=== PATIENT | male | born 1980 | race Two or more races ===

== ENCOUNTER 2018-01-08 11:39 | Emergency (ER) | payer OTHER ==
[2018-01-08 12:02] VITALS: BP 136/85
--- NOTE | 2018-01-08 12:28 | ER Document Report ---
ED General - General Chief Complaint: Facial Droop Stated Complaint: FACIAL NUMBNESS Time Seen by Provider: 01/08/18 12:10 Notes: 37-year-old male sent here from the [place] for evaluation of Pearson's palsy. Patient states that 2-3 days ago, he woke up with complete left sided facial paralysis but no numbness or tingling. He has been unable to completely close his eyelid. Earlier in the week, he ate a shrimp sandwich and broke out with mouth sores however they went away and are resolved but several days later he woke up with the facial paralysis symptoms. He denies any eye pain or ear pain however has some pain behind his left ear. No prior history of Pearson's palsy. Denies extremity paralysis weakness numbness tingling. TRAVEL OUTSIDE OF THE [place] IN LAST 30 DAYS: No - Related Data Allergies/Adverse Reactions: No Known Allergies Allergy (Verified 01/08/18 11:45) Past Medical History - Social History Smoking Status: Unknown if Ever Smoked Family History: Reviewed & Not Pertinent Review of Systems - Review of Systems Notes: See history of present illness for pertinent positive review of systems; otherwise all review of systems have been reviewed and are negative Physical Exam - Vital signs Vitals: Temp Pulse Resp BP Pulse Ox 98.1 F 59 L 18 136/85 H 96 01/08/18 12:01 01/08/18 12:01 01/08/18 12:01 01/08/18 12:01 01/08/18 12:01 - Notes Notes: PHYSICAL EXAMINATION: GENERAL: Well-appearing and in no acute distress. HEAD: Atraumatic, normocephalic. EYES: Pupils equal round and reactive to light, extraocular movements intact, sclera anicteric, conjunctiva are normal. ENT: nares patent, oropharynx clear without exudates. Moist mucous membranes. No facial vesicular lesions. Bilateral TMs normal NECK: Normal range of motion, supple without lymphadenopathy LUNGS: CTAB and equal. No wheezes rales or rhonchi. HEART: Regular rate and rhythm without murmurs ABDOMEN: Soft, no tenderness. No facial grimacing/wincing upon palpation. No guarding, no rebound. EXTREMITIES: Normal range of motion, no pitting edema. No cyanosis. NEUROLOGICAL: Full facial paralysis, upper and lower with absence of forehead furrows however facial sensation is fully intact/normal. Normal sensory/motor exams all extremities. PSYCH: Normal mood, normal affect. SKIN: Warm, Dry, normal turgor, no rashes or lesions noted Course - Re-evaluation Re-evalutation: 01/08/18 12:32 MEDICAL DECISION MAKING: Concern for Pearson's palsy History and exam are consistent with Pearson's palsy, especially preceding oral lesions Low clinical suspicion for acute emergent pathology i.e. CVA/TIA/bleed Will prescribe valacyclovir prednisone and meloxicam Instructed follow-up PCP next day or few Patient understands and agrees to the plan of care - Vital Signs Vital signs: Temp Pulse Resp BP Pulse Ox 98.1 F 59 L 18 136/85 H 96 01/08/18 12:01 01/08/18 12:01 01/08/18 12:01 01/08/18 12:01 01/08/18 12:01 Discharge - Discharge Clinical Impression: Pearson's palsy Condition: Good Disposition: HOME, SELF-CARE Instructions: Pearson's Palsy ([facility]) Additional Instructions: You were seen in the emergency department at [facility]. Please finish the antivirals and steroids for the Pearson's palsy. Please followup with your primary physician in the next few days for further management/evaluation. Please return to the emergency department for worsening of symptoms or any symptom that you deem to be concerning or life-threatening. Thank you for allowing us to be part of your care. Prescriptions: Meloxicam 7.5 mg PO DAILYP PRN #7 tablet PRN Reason: Prednisone 60 mg PO DAILY #21 tablet Valacyclovir HCl [Valacyclovir] 1,000 mg PO TID #21 tablet
== END 2018-01-08 12:27 | disposition home or self-care (01) ==
LOC: ER 11:39
DX: G51.0 Bell's palsy (principal)
CPT/HCPCS: 99283

== ENCOUNTER 2019-04-09 08:54 | Emergency (ER) | payer OTHER ==
[2019-04-09 09:33] VITALS: BP 126/83
--- NOTE | 2019-04-09 11:24 | ER Document Report ---
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 denies vision changes other than some dryness to his right eye. feels like he may be getting bells palsy again. denies prior hx of strokes. he denies hx of herpes. no recent abx or steroids. no other numbness, tingling, or weakness. states sx resolved last year after about 6-9 months after taking about a week of steroids until now. no trauma or injury. no ear sx. no trouble breathing, swallowing, or handling secretions. no other sx at this time. ROS neg to include 10 systems, unless mentioned in the hpi. PE:>>>> PHYSICAL_EXAM: GENERAL_APPEARANCE: well_nourished, alert, cooperative, no_acute_distress, no_obvious_discomfort. pleasant, obese male, smiling, speaking in full sentences, in no sign of pain or resp distress, no one is with him VITALS: reviewed, see vital signs table. HEAD: no_swelling\tenderness on the head. normocephalic. atraumatic. no arnold signs. no raccoons eyes. there is right facial droop that also includes paralysis to the right forehead. he has no right forehead crinkle. he isn't able to keep his right eyelids closed shut when i try to open them. assymetric smile. EYES: PERRL, EOMI, conjunctiva_clear. no photophobia. no drainage. NOSE: no_nasal_discharge. MOUTH: (-)decreased moisture. THROAT: no_tonsilar_inflammation, no_airway_obstruction. no_lymphadenopathy NECK: supple, no_neck_tenderness, (-)thyromegaly. full rom. full strength. no meningeal signs. BACK: no_back_tenderness. CHEST_WALL: no_chest_tenderness. no overlying skin changes LUNGS: no_wheezing, ctab (-)accessory muscle use, good air exchange bilateral. HEART: normal_rate, normal_rhythm, EXTREMITIES: strength 5/5 in all_extremities, good pulses in all_extremities, no_swelling\tenderness in the extremities, no_edema. full rom. normal gait. good pulses. brisk cap refill. good hand casing cooker. NEURO: motor and sensation intact other than some slight decreased sensation to light touch over the right side of the face SKIN: warm, dry, good_color, no_rash. MENTAL_STATUS: speech_clear, oriented_X_3, normal_affect, responds_appropriately to questions. MDM: I have ordered labs and initial work-up and patient will be transferred to the main ER for further work-up. I have greeted and performed a rapid initial assessment of this patient. A comprehensive ED assessment and evaluation of the patient, analysis of test results and completion of medical decision making process will be conducted by an additional ED providers. Documentation achieved through voice recording which my lead to some occasional accidental typographical errors. Extensive efforts have been made to proof read documentation to make sure these are the least as possible Temp Pulse Resp BP Pulse Ox 04/09/19 09:30 98.2 F 62 18 126/83 H 96 Category Date Time Status Visual Acuity (ED) NOW Care 04/09/19 11:17 Ordered TRAVEL OUTSIDE OF THE [place] IN LAST 30 DAYS: No - Related Data Allergies/Adverse Reactions: No Known Allergies Allergy (Verified 04/09/19 08:55) Past Medical History Renal/ Medical History: Denies: Hx Peritoneal Dialysis Physical Exam - Vital signs Vitals: Temp Pulse Resp BP Pulse Ox 98.2 F 62 18 126/83 H 96 04/09/19 09:30 04/09/19 09:30 04/09/19 09:30 04/09/19 09:30 04/09/19 09:30 Course - Vital Signs Vital signs: Temp Pulse Resp BP Pulse Ox 98.2 F 62 18 126/83 H 96 04/09/19 09:30 04/09/19 09:30 04/09/19 09:30 04/09/19 09:30 04/09/19 09:30
[2019-04-09] MEDS ORDERED: VALACYCLOVIR HCL 500 MG TABLET PO ONE (12:24)
--- NOTE | 2019-04-09 12:24 | ER Document Report ---
ED General - General Chief Complaint: Numbness of Face Stated Complaint: FACIAL SWELLING Time Seen by Provider: 04/09/19 11:17 Primary Care Provider: JAIDEN VILLEGAS [Primary Care Provider] - Follow up as needed Notes: 39-year-old male presents the emergency department complaining of right-sided facial droop. Patient states that he has a history of Pearson's palsy on the left 1 year ago and states that he starting to have it on the right. Patient states he started having a burning tingling pain on the right side of his head on Monday that he thought was just a headache however yesterday he developed right-sided facial droop that feels identical to his prior Pearson's palsy. Denies any blurry vision, denies any pain in his eye, denies any foreign body sensation. Denies any lesions on his face. States the pain is decreased with Motrin but the weakness has not improved. Denies any other symptoms. Denies any weakness to the rest of his body or change in sensation to the rest of his body. TRAVEL OUTSIDE OF THE [place] IN LAST 30 DAYS: No - Related Data Allergies/Adverse Reactions: No Known Allergies Allergy (Verified 04/09/19 08:55) Past Medical History - General Information source: Patient - Social History Smoking Status: Never Smoker Frequency of alcohol use: Rare Drug Abuse: None Family History: Reviewed & Not Pertinent Patient has suicidal ideation: No Patient has homicidal ideation: No Renal/ Medical History: Denies: Hx Peritoneal Dialysis Past Surgical History: Reports: Hx Oral Surgery - wisdom teeth Review of Systems - Review of Systems Constitutional: No symptoms reported EENT: See HPI Neurological/Psychological: See HPI -: Yes All other systems reviewed and negative Physical Exam - Vital signs Vitals: Temp Pulse Resp BP Pulse Ox 98.2 F 62 18 126/83 H 96 04/09/19 09:30 04/09/19 09:30 04/09/19 09:30 04/09/19 09:30 04/09/19 09:30 Interpretation: Normal - Notes Notes: GENERAL: Alert, interacts well. No acute distress. HEAD: Normocephalic, atraumatic EYES: Pupils equal, round and reactive to light, extraocular movements intact. ENT: Oral mucosa moist, tongue midline. Nares patent, no nasal septal hematoma, TMs intact. NECK: Full range of motion, supple, trachea midline. LUNGS: Clear to auscultation bilaterally, no wheezes, rales or rhonchi, no respiratory distress. HEART: Regular rate and rhythm, no murmurs, gallops, rubs. ABDOMEN: Soft, nontender, nondistended, bowel sounds present in all 4 quadrants. EXTREMITIES: Moves all 4 extremities spontaneously, no edema, radial and dorsalis pedis pulses 2/4 bilaterally. No cyanosis. NEUROLOGICAL: Alert and oriented x3, normal speech, right-sided facial droop, sensation intact, out of 5 muscle strength in all 4 extremities. PSYCH: Normal mood, normal affect. SKIN: Warm, Dry, normal turgor, no rashes or lesions noted. - HEENT Visual acuity- Right eye: 20/20 Visual acuity- Left eye: 20/20 Visual acuity- Both eyes: 20/20 Corrective lenses worn: Yes - Pt wears glasses. Course - Re-evaluation Re-evalutation: 04/09/19 12:20 Consistent with Pearson's palsy, no suspicion for corneal abrasion or dendritic lesions to the eyes as patient has absolutely no pain and normal vision. Patient is advised to use wetting drops, prescribed steroids, Neurontin and valacyclovir. Discharged home and recommended to follow-up with primary care physician for possible referral to either ENT or neurology given that the patient has had 2-3 episodes of Pearson's palsy in the past year and a half. - Vital Signs Vital signs: Temp Pulse Resp BP Pulse Ox 98.2 F 62 18 126/83 H 96 04/09/19 09:30 04/09/19 09:30 04/09/19 09:30 04/09/19 09:30 04/09/19 09:30 Discharge - Discharge Clinical Impression: Pearson's palsy Condition: Stable Disposition: HOME, SELF-CARE Additional Instructions: [place]' Palsy You have been diagnosed as having Pearson's Palsy -- a paralysis of certain muscles of the face. It's caused by a temporary paralysis of the nerve which controls the muscles. The cause is unknown, but it's thought to be caused by a virus in most cases. The physician's exam shows that this is NOT a stroke. Pearson's Palsy usually gets better by itself. There is no cure. Sometimes cortisone-type medication is given to decrease nerve swelling. This problem is usually temporary, lasting about three weeks. During that time, you must protect the eye from injury (because the eyelid muscles often do not cover it). Rewetting drops such as the one sick contact lens users will be helpful to use. Please use these at least once every hour while you are awake. If you develop pain in your eye, blurry vision, fevers or any new or concerning symptoms please return to the emergency department. Be sure to follow up as instructed, and call the doctor at once if new symptoms arise. Report any eye pain, decreasing vision or double vision, or any numbness or weakness outside the face area. 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 Prescriptions: Gabapentin [Neurontin 100 mg Capsule] 100 mg PO TIDP PRN #30 capsule PRN Reason: Prednisone [Deltasone 10 mg Tablet] 10 mg PO ASDIR PRN #21 tablet PRN Reason: Valacyclovir HCl [Valacyclovir] 1,000 mg PO TID #30 tablet Referrals: [facility] [Primary Care Provider] - Follow up as needed
== END 2019-04-09 12:37 | disposition home or self-care (01) ==
LOC: ER 08:54
DX: G51.0 Bell's palsy (principal); R20.8 Other disturbances of skin sensation; R20.2 Paresthesia of skin
CPT/HCPCS: 99283

== ENCOUNTER → 2019-06-18 | Outpatient (CLI) | payer OTHER | LOC: OD 11:01 | PROVIDERS: ATTEND Otolaryngology | DX: J30.9 Allergic rhinitis, unspecified (principal) | CPT/HCPCS: 36415; 82785; 86003 ==